=== PATIENT | male | born 1960 | race Caucasian/White ===

== ENCOUNTER 2024-02-16 10:15 | Outpatient (REF) | payer BC, SELFPAY ==
--- NOTE | ~2024-02-16 | XR_ITS ---
EXAMINATION: XR HIP, LEFT CLINICAL INFORMATION: Pain in left hip. COMPARISON: None available. TECHNIQUE: AP view of the pelvis and frog-lateral view of the left hip. FINDINGS: Mild narrowing in the left hip with osteoarthritic changes. Alignment maintained. Minimal degenerative changes on AP view of the right hip. Pubic symphysis is maintained. Bilateral sacroiliac joints are maintained. XR/XR hip LT min 2V IMPRESSION: Mild degenerative changes in the left hip.
== END 2024-02-16 10:16 | disposition home or self-care (01) ==
LOC: HO.HOSX 10:15
PROVIDERS: Visit Provider Orthopaedic Surgery
DX: M25.552 Pain in left hip (principal)
CPT/HCPCS: 73502

== ENCOUNTER 2024-02-16 12:39 | Outpatient (AMB) | payer BC, SELFPAY ==
--- NOTE | 2024-02-16 12:57 | MHC.OFFVIS ---
Intake Visit Reasons: N/P left hip O.A pain , Low back pain Intake Note: Yogesh is a 63 year old male who presents with complaints of progressively worsening pain along the posterior aspect of his left hip radiates into his left leg. Patient states that he was bending over to lift his cover off of his pool when he had acute onset of pain along his low back and the posterior aspect of his left hip. He had difficulty walking after the twisting injury. He has been taking Advil and Robaxin which gave him minimal relief. The patient has difficulty sitting for long periods of time because of his pain. He also reports intermittent weakness in his left leg. 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 Exam Const Other: Well-nourished well-developed very friendly male awake alert and oriented x3 in no acute distress Extrem Other: Left hip examination shows minimal discomfort with range of motion, tenderness along the left side of his lumbar spine, positive straight leg raise test on the left at 70 degrees, no tenderness over his greater trochanteric bursa Results Reviewed Results Reviewed: X-rays of the patient's left hip show mild diffuse joint space narrowing, no acute bony abnormalities Assessment & Plan Assessment & Plan (1) Low Back Pain: Code(s): M54.50 - Low back pain, unspecified Plan Mr. Jackson presents with pain along the posterior aspect of his left hip most likely due to lumbar muscle spasm versus possible disc herniation. I did give the patient is a prescription for a Medrol Dosepak. Activity modifications and stretching exercises were discussed at length with the patient. Will contact me prior to his follow-up appointment in 4-6 weeks should his symptoms worsen in any way. If his symptoms do not improve at that time I will order an MRI of his lumbar spine to further evaluate for possible lumbar spine pathology. Feel free to call me at any time should questions regarding his orthopedic management arise. I spent 21 minutes in reviewing the patient's records and imaging studies, seeing the patient and documenting in the medical record. Orders: Orders XR hip LT min 2V 02/16/24 M25.552 - Pain in left hip Medications: New methylprednisolone (Medrol (Roland)) PO PER PKG DIR 21 ea 0RF Coding Level of Care Code Est Pt Level 3 (21260) Diagnoses Low Back Pain M54.50
== END 2024-02-16 13:17 | disposition home or self-care (01) ==
PROVIDERS: PCP Internal Medicine; Visit Provider Orthopaedic Surgery
DX: M54.50 Low back pain, unspecified (principal)
CPT/HCPCS: 99214

== ENCOUNTER 2024-03-14 13:07 | Outpatient (AMB) | payer BC, SELFPAY ==
--- NOTE | 2024-03-14 13:09 | A.OFFVIS_ITS ---
Intake Visit Reasons: Low back pain radiating to both legs Intake Note: Yogesh is a 63 year old male who presents with complaints of progressively worsening back pain which radiates into the posterior aspect of his left hip as well as radiating down his right leg to his right foot. Patient states that he was bending over to lift his cover off of his pool when he had acute onset of pain. He had difficulty walking after the twisting injury. He has been taking Advil and Robaxin which gave him minimal relief. The patient has difficulty sitting for long periods of time because of his pain. He also reports intermittent weakness in his right leg. The patient states that his back pain is now interfering with his activities of daily living and his ability to sleep well through the night. He has done physical therapy exercises which aggravated his pain. The patient has failed the last 6 weeks of conservative treatment. Allergies No Known Allergies Allergy (Verified 03/14/24 13:10) Medication List - Last Reconciled 03/14/24 by Rachid Moody MD amlodipine 10 mg PO DAILY doxepin 10 mg PO BEDTIME hydrochlorothiazide 12.5 mg PO DAILY metformin 500 mg PO BID methocarbamol 750 mg PO TID methylprednisolone (Medrol (Roland)) PO PER PKG DIR semaglutide (Ozempic) mg subcut testosterone topical valsartan 160 mg PO DAILY PFSH Surgical History (Updated 02/16/24 @ 13:02 by Melania Hernández CMA) Hx of knee surgery Social History (Updated 02/16/24 @ 13:01 by Melania Hernández CMA) Patient Tobacco Use Status: Never used Tobacco Current occupational status: employed 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 Jackson presents with progressively worsening low back pain which radiates into both of his lower extremities as well as right leg weakness possibly due to lumbar stenosis or a disc herniation. Thus, I will send the patient for an MRI of his lumbar spine for further evaluation. I will see him back once the MRI is completed to discuss the findings and treatment options. Will continue with his activity modifications in the meantime. The patient will call me prior to his MRI should his symptoms worsen in any way. Feel free to call me at any time should questions regarding his orthopedic management arise. I spent 21 minutes in reviewing the patient's records and imaging studies, seeing the patient and documenting in the medical record. Orders: Orders MR lumbar spine wo con 03/14/24 M54.50 - Low back pain, unspecified, M79.604 - Pain in right leg, M79.605 - Pain in left leg Coding Level of Care Code Est Pt Level 3 (63008) Diagnoses Low back pain radiating to both legs M54.50; M79.604; M79.605
== END 2024-03-14 13:29 | disposition home or self-care (01) ==
PROVIDERS: PCP Internal Medicine; Visit Provider Orthopaedic Surgery
DX: M54.50 Low back pain, unspecified (principal); M79.604 Pain in right leg; M79.605 Pain in left leg
CPT/HCPCS: 99213

== ENCOUNTER → 2024-03-14 13:07 | Outpatient (BNVA) | payer BC, SELFPAY | PROVIDERS: PCP Internal Medicine; Visit Provider Orthopaedic Surgery ==

== ENCOUNTER 2024-04-11 11:38 | Outpatient (AMB) | payer BC, SELFPAY ==
--- NOTE | 2024-04-11 11:46 | A.OFFVIS_ITS ---
Intake Visit Reasons: OV-MRI Review lower back. Intake Note: Yogesh is a 63 yo male who presents today to review spine MRI results. The patient states that he has pain in his low back which radiates to both of his thighs. He also reports weakness when getting out of a chair. He has tried Tylenol and a Medrol Dosepak which gave him only mild relief. Allergies No Known Allergies Allergy (Verified 04/11/24 11:52) Medication List - Last Reconciled 04/11/24 by Rachid Moody MD amlodipine 10 mg PO DAILY doxepin 10 mg PO BEDTIME hydrochlorothiazide 12.5 mg PO DAILY metformin 500 mg PO BID methocarbamol 750 mg PO TID methylprednisolone (Medrol (Roland)) PO PER PKG DIR semaglutide (Ozempic) mg subcut testosterone topical valsartan 160 mg PO DAILY PFSH Surgical History (Updated 02/16/24 @ 13:02 by Melania Hernández CMA) Hx of knee surgery Social History (Updated 02/16/24 @ 13:01 by Melania Hernández CMA) Patient Tobacco Use Status: Never used Tobacco Current occupational status: employed 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 Exam Const Other: Well-nourished well-developed very friendly male awake alert and oriented x3 in no acute distress Back/Spine/Pelvis Other: Low back examination shows bilateral paraspinal muscle tenderness, positive straight leg raise test on the left at 70 degrees Results Reviewed Results Reviewed: [facility] MRI of the patient's lumbar spine shows moderate to advanced bilateral neural foraminal stenosis greater on the left at level L4-L5 Assessment & Plan Assessment & Plan (1) Low back pain radiating to both legs: Code(s): M54.50 - Low back pain, unspecified; M79.604 - Pain in right leg; M79.605 - Pain in left leg Category: Medical Plan Mr. Jackson presents with low back pain which radiates into both of his legs most likely due to neural foraminal stenosis at level L4-L5. Thus, I will have the patient evaluated in our neurosurgery department here at [facility]. The patient will contact me prior to that appointment should his symptoms worsen in any way. Feel free to call me at any time should questions regarding his orthopedic management arise. I spent 20 minutes in reviewing the patient's records and imaging studies, seeing the patient and documenting in the medical record. Orders: Referrals Neuro Spine Referral M54.50 - Low back pain, unspecified, M79.604 - Pain in right leg, M79.605 - Pain in left leg Coding Level of Care Code Est Pt Level 3 (04779) Diagnoses Low back pain radiating to both legs M54.50; M79.604; M79.605
== END 2024-04-11 12:19 | disposition home or self-care (01) ==
PROVIDERS: PCP Internal Medicine; Visit Provider Orthopaedic Surgery
DX: M54.50 Low back pain, unspecified (principal); M79.604 Pain in right leg; M79.605 Pain in left leg
CPT/HCPCS: 99213

== ENCOUNTER → 2024-04-11 11:38 | Outpatient (BNVA) | payer BC, SELFPAY | PROVIDERS: PCP Internal Medicine; Visit Provider Orthopaedic Surgery ==

== ENCOUNTER 2024-04-30 12:54 | Outpatient (AMB) | payer BC, SELFPAY ==
--- NOTE | 2024-04-30 13:02 | HO.SPINEOV ---
Intake Visit Reasons: LBP Intake Note: Mr. Jackson is here today c/o low back pain that radiates down both legs. Enrobing Machine Corder Required: No Allergies No Known Allergies Allergy (Verified 04/30/24 13:04) Assessment & Plan Assessment & Plan (1) Low back pain radiating to both legs: Code(s): M54.50 - Low back pain, unspecified; M79.604 - Pain in right leg; M79.605 - Pain in left leg Category: Medical Plan Dear Dr Moody, Thank you for referring Mr Jackson to our office today. This is a very nice 63-year-old gentleman who presents to the office today for evaluation for chronic low back issues. Did have an acute event a few months back where he was bending over to get something in his pool and felt an abrupt onset of back pain. That seems to have passed. What he is dealing with more than anything is a stiffness in his feeling of back pain and intermittent leg pain which comes and goes from time to time. He sits for lengthy periods of time throughout the day, sometimes 12-14 hours. When he gets up from a seated position at that point he will feel very stiff. He has been losing weight and is down about 30 or so lb. That might be helping as well. He had an MRI done showing some degenerative disc issues and came today to see us for evaluation. PMH: Hypertension, prediabetes, knee surgery Social hx: He does not smoke, drink use any recreational drugs Medications: Metformin, hydrochlorothiazide, valsartan, paroxetine, testosterone gel, Ozempic amlodipine Allergies: None Physical exam: He is awake alert oriented no acute distress, he is able stand up on his own, ambulate with normal gait Imaging review: Lumbar MRI done at the [facility] shows some mild disc degeneration at the upper lumbar levels. At L4-5 there is some slight crowding the lateral recess but not anything significant. The radiology report suggests that there is advanced neuroforaminal stenosis at the L4-5 level as well but I disagree with this. There is no spondylolisthesis, spondylolysis or fracture. Impression: 63-year-old male presents to the office for evaluation of chronic low back pain issues with intermittent occasional leg pains. These things can come and go, he may experience them 1 to 2 times a month. Overall I think his disc quality health is excellent. He does not have any significant central or foraminal stenosis. I know the radiology report suggests that he has advanced foraminal stenosis at L4-5 but I disagree with this. I think what he is dealing with is a combination of long-term sedentary lifestyle, obesity and relative inactivity causing them to have stiffness and pain in his back when he starts to get active and move around. I think this would be easily be treatable with lifestyle modifications, and some weight loss. We discussed all these things at length during his office visit. Certainly nothing on his MRI looks surgical. I would be happy to see him back if something changes. Thank you for allowing us to care for your patient. The total time spent with this visit with this patient was 45 minutes reviewing history, physical exam, lumbar imaging review, and implementation of treatment plan or further diagnostic testing Iain Adhikari MD,PhD [facility] Coding Level of Care Code New Pt Level 4 (39414) Diagnoses Low back pain radiating to both legs M54.50; M79.604; M79.605
== END 2024-04-30 14:22 | disposition home or self-care (01) ==
PROVIDERS: PCP Internal Medicine; Referring Provider Orthopaedic Surgery; Visit Provider Physician Assistant
DX: M54.50 Low back pain, unspecified (principal); M79.604 Pain in right leg; M79.605 Pain in left leg
CPT/HCPCS: 99204

== ENCOUNTER → 2024-04-30 12:54 | Outpatient (BNVA) | payer BC, SELFPAY | PROVIDERS: PCP Internal Medicine; Visit Provider Physician Assistant ==

== ENCOUNTER 2024-05-23 13:05 | Outpatient (AMB) | payer BC, SELFPAY ==
--- NOTE | 2024-05-23 13:06 | A.OFFVIS_ITS ---
Vital Signs 05/23/24 13:12 Height 5 ft 11 in Weight 292 lb BMI 40.7 Intake Visit Reasons: OV-New prob Right shldr pain Intake Note: Mr. Jackson presents with complaints of progressively worsening right shoulder pain and weakness. The patient describes his pain as sharp and severe in nature. Most of the pain is along the lateral aspect of his right shoulder. Does report weakness when lifting his right hand above shoulder height. His right shoulder pain and weakness have gotten worse over the last year in spite of continued non operative treatments. He has done physical therapy exercises which aggravated his pain. He has failed the last 6 weeks of conservative treatment. He has tried Tylenol, anti-inflammatory medicines and muscle relaxants which gave him minimal relief. Allergies No Known Allergies Allergy (Verified 05/23/24 13:07) Medication List - Last Reconciled 05/24/24 by Rachid Moody MD amlodipine 10 mg PO DAILY doxepin 10 mg PO BEDTIME hydrochlorothiazide 12.5 mg PO DAILY metformin 500 mg PO BID methocarbamol 750 mg PO TID methylprednisolone (Medrol (Roland)) PO PER PKG DIR semaglutide (Ozempic) mg subcut testosterone topical valsartan 160 mg PO DAILY PFSH Surgical History (Updated 02/16/24 @ 13:02 by Melania Hernández CMA) Hx of knee surgery Social History (Updated 02/16/24 @ 13:01 by Melania Hernández CMA) Patient Tobacco Use Status: Never used Tobacco Current occupational status: employed 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 Exam Vital Signs: BMI result Body Mass Index 40.7 Const Other: Well-nourished well-developed very friendly male awake alert and oriented x3 in no acute distress Extrem Other: Bilateral upper extremity examination shows good capillary refill, no skin lesions noted, normal sensation light touch Right shoulder examination shows slightly decreased range of motion when compared to his left shoulder, 4+ out of 5 strength with supraspinatus testing, positive impingement signs, tenderness over his acromioclavicular joint, no instability Office Procedures Joint Injection/Aspiration Joint Injection/Aspiration Primary Site: right shoulder Prep: site was prepped using aseptic technique Injected: 40 mg of, DepoMedrol and 1% plain lidocaine Procedure: The patient tolerated the procedure well Coding 87594 - Large joint Procedure code (CPT) selection complete Assessment & Plan Assessment & Plan (1) Right shoulder pain: Code(s): M25.511 - Pain in right shoulder Category: Medical Plan Mr. Jackson presents with right shoulder pain and weakness due to impingement syndrome and possible rotator cuff tearing. I had a lengthy discussion with the patient regarding the treatment options. The risks and benefits of a right shoulder cortisone injection were discussed at length with the patient. The patient wished to proceed. He tolerated the injection well. I will also send the patient for an MRI of his right shoulder to further evaluate the status of his rotator cuff tendons. If he does have a full-thickness tear I will recommend surgical repair to optimize his future functional level. I will see him back once the MRI is completed to discuss the findings and treatment options. Feel free to call me at any time should questions regarding his orthopedic management arise. I spent 21 minutes in reviewing the patient's records and imaging studies, seeing the patient and documenting in the medical record. Orders: Orders MR shoulder RT wo con Today M25.511 - Pain in right shoulder AMB Joint Injection/Aspiration 05/23/24 M25.511 - Pain in right shoulder Coding Level of Care Code Est Pt Level 3 (15524) Complex EM visit Add On G2211 Diagnoses Right shoulder pain M25.511 CPT Codes Coding - 90563 Large joint: 68343 - Large joint ([id number])
[2024-05-23 13:12] VITALS: BMI 40.7
== END 2024-05-23 13:31 | disposition home or self-care (01) ==
PROVIDERS: PCP Internal Medicine; Visit Provider Orthopaedic Surgery
DX: M75.41 Impingement syndrome of right shoulder (principal)
CPT/HCPCS: 20610; 99213

== ENCOUNTER → 2024-05-23 13:05 | Outpatient (BNVA) | payer BC, SELFPAY | PROVIDERS: PCP Internal Medicine; Visit Provider Orthopaedic Surgery | DX: M75.41 Impingement syndrome of right shoulder (principal) | CPT/HCPCS: 20610; J1010 ==

== ENCOUNTER 2024-06-07 14:26 | Outpatient (AMB) | payer BC, SELFPAY ==
--- NOTE | 2024-06-07 14:27 | A.OFFVIS_ITS ---
Vital Signs 06/07/24 14:28 Height 5 ft 11 in Weight 292 lb BMI 40.7 Intake Visit Reasons: OV-MRI Right shoulder review Intake Note: Mr. Jackson presents with complaints of progressively worsening right shoulder pain. The patient describes his pain as sharp and severe in nature. Most of the pain is along the lateral aspect of his right shoulder. The patient states that his pain has gotten worse over the last year in spite of continued non operative treatments. He has done physical therapy exercises which aggravated his pain. He has had injections in the past which gave him minimal relief. Has also taken Tylenol, anti-inflammatory medicines and muscle relaxants which gave him minimal relief. The patient has failed the last 6 weeks of conservative treatment. Yogesh is a 63 year old male that presents today for a MRI review. 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 Exam Vital Signs: BMI result Body Mass Index 40.7 Const Other: Well-nourished well-developed very friendly male awake alert and oriented x3 in no acute distress Extrem Other: Bilateral upper extremity examination shows good capillary refill, no skin lesions noted, normal sensation light touch Right shoulder examination shows slightly decreased range of motion when compared to his left shoulder, 4+ out of 5 strength with supraspinatus testing, positive impingement signs, tenderness over his acromioclavicular joint, no instability Results Reviewed Results Reviewed: MRI of the patient's right shoulder show severe acromioclavicular joint narrowing, a type 3 acromion, signal change within the supraspinatus tendon most likely due to rotator cuff tendinosis versus partial-thickness tearing Assessment & Plan Assessment & Plan (1) Impingement of right shoulder: Code(s): M25.811 - Other specified joint disorders, right shoulder Category: Medical Plan Mr. Jackson presents with progressively worsening right shoulder pain due to impingement syndrome and acromioclavicular joint arthritis. I had a lengthy discussion with the patient regarding the treatment options. At this point he has failed continued non operative treatments. The risks and benefits of right shoulder surgery were discussed at length with the patient. The patient wishes to proceed with surgery later this year. He will contact my office to pick a surgery date. Surgery will most likely involve right shoulder diagnostic arthro scopy with arthroscopic distal clavicle excision and acromioplasty. The patient will continue with his range of motion exercises in the meantime to prevent stiffness. Feel free to call me at any time should questions regarding his orthopedic management arise. I spent 22 minutes in reviewing the patient's records and imaging studies, seeing the patient and documenting in the medical record. Coding Level of Care Code Est Pt Level 3 (99949) Complex EM visit Add On G2211 Diagnoses Impingement of right shoulder M25.811
[2024-06-07 14:28] VITALS: BMI 40.7
== END 2024-06-07 14:54 | disposition home or self-care (01) ==
PROVIDERS: PCP Internal Medicine; Visit Provider Orthopaedic Surgery
DX: M25.811 Other specified joint disorders, right shoulder (principal)
CPT/HCPCS: 99214

== ENCOUNTER → 2024-06-07 14:26 | Outpatient (BNVA) | payer BC, SELFPAY | PROVIDERS: PCP Internal Medicine; Visit Provider Orthopaedic Surgery ==

== ENCOUNTER 2024-09-14 05:50 | Day surgery (SDC) | payer BC, SELFPAY ==
[2024-08-29 12:10] VITALS: BMI 39.7
[2024-09-14] VITALS (12 sets, daily range): BP systolic 100–150; BP diastolic 53–86; PULSE 58–67; RESP 12–17; TEMP 36.1–36.4; O2SAT 91–98; BMI 40.3
[2024-09-14 06:32] LABS: Glucose, Whole Blood 140 mg/dL (60-115)
[2024-09-14 06:40] LABS: Anion Gap 12 (12-20); Blood Urea Nitrogen 20 mg/dL (9-16); Calcium 9.3 mg/dL (8.4-10.2); Carbon Dioxide 28 mmol/L (22-29); Chloride 103 mmol/L (96-108); Creatinine Clr Calc Pharmacy 90.3; Estimated Glomerular Filt Rate > 60; Glucose Fasting 124 mg/dL (60-99); Potassium 3.2 mmol/L (3.3-5.1); Sodium 140 mmol/L (135-145)
[2024-09-14] MEDS: Lactated Ringers 1,000 ML 100 ML IVCONT (06:57)
[2024-09-14 07:07] LABS: Hematocrit 45.7 % (42.0-52.0); Hemoglobin 16.1 g/dl (14.0-18.0); Mean Corpuscular HGB Conc 35.2 g/dl (31.0-36.0); Mean Corpuscular Hemoglobin 29.3 pg (27.0-33.0); Mean Corpuscular Volume 83.1 fL (80.0-98.0); Mean Platelet Volume 11.2 fL (9.4-12.4); Platelet Count 123 X10*3/uL (160-400); Red Cell Distribution Width 12.2 % (11.0-16.0); White Blood Count 7.2 X10*3/uL (4.8-10.8)
--- NOTE | 2024-09-14 07:25 | HO.ANESPROP2 ---
Documented by User: Celia Suarez NP 08/31/24 12:16 HPI - Anesthesia Eval Consult details Narrative: 64yo M for Right Shoulder Arthroscopy distal clavicle excision,acromioplasty, 09/14/24 Follows PCP for moderate aortic stenosis with yearly echo. Stable at 08/28/24 office visit. Anesthesia Pre-Procedure Meds Is the patient on any of the following meds?: GLP1/DPP4 PMFSH Active Problems Active Problems: All Active Problems Impingement of right shoulder (Acute) Right shoulder pain (Acute) Low back pain radiating to both legs (Acute) Left hip pain (Acute) Past Medical History Medical History (Updated 09/14/24 @ 06:36 by Erica Hoover RN) Pre-diabetes Anxiety Obesity Diabetes HTN (hypertension) Aortic stenosis Skin cancer COVID-19 Murmur Surgical History Surgical History (Updated 09/14/24 @ 06:24 by Erica Hoover RN) History of dental surgery H/O colonoscopy History of testicular surgery Hx of knee surgery Social History Social History Are you a primary child caregiver private home to a significant other at home: No Do you presently have visiting nurse or other home services: No Patient Tobacco Use Status: Never used Tobacco Use of substances other than those prescribed or required for medical reasons: No Have you been hit, kicked, punched, or otherwise hurt by someone within the past year? 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 Allergies Allergy/AdvReac Type Severity Reaction Status Date / Time No Known Allergies Allergy Verified 09/14/24 06:14 Home Medications ?Medication ?Instructions ?Recorded ?Confirmed ?Last Taken ?Type amlodipine 10 mg tablet 10 mg PO QNOON 02/16/24 09/14/24 09/13/24 History hydrochlorothiazide 12.5 mg tablet 12.5 mg PO DAILY 02/16/24 09/14/24 09/13/24 History metformin 500 mg tablet 500 mg PO QPM 02/16/24 09/14/2409/12/24 History semaglutide 0.25 mg or 0.5 mg (2 0.25 mg subcut QWEEK 02/16/24 09/14/24 09/02/24 History mg/3 mL) subcutaneous pen injector (Ozempic) testosterone 1 pump topical DAILY 02/16/24 09/14/24 Unknown History valsartan 160 mg tablet 160 mg PO DAILY 02/16/24 09/14/24 09/13/24 History lorazepam 0.5 mg tablet 0.5 mg PO DAILY PRN Insomnia 08/29/24 09/14/24 Unknown History paroxetine HCl 20 mg tablet 20 mg PO DAILY 08/29/24 09/14/24 Unknown History Exam Height,Weight and Vital Signs: Height 5 ft 11 in Weight 129.274 kg Narrative Narrative: EKG [id number] SR @ 69 1st deg AV block ECHO 06/2024 LV size nml. LV wall thickness is mildly increased. LV poorly visualized. Echocontrast images are off axis. Nml LV sys function. EF 55-60%. No obvious WMA on limited views. Nml diastolic function. Aortic valve moderately calcified, more prominant of noncoronary cusp. Moderate . Mean gradient 25mmHg. RANI 1.38cm2. No aortic regurg RV size and function appears grossly nml. No significant pericardial effusion. Nuc Stress 07/2024 Negative for ischemia Assessment and Plan Assessment Anesthesia Assessment: Chart Reviewed Documented by User: Tiki Pascal DO 09/14/24 07:53 HPI - Anesthesia Eval Anesthesia Pre-Procedure Meds Is the patient on any of the following meds?: GLP1/DPP4 PMFSH Past Medical History Medical History (Updated 09/14/24 @ 06:36 by Erica Hoover RN) Pre-diabetes Anxiety Obesity Diabetes HTN (hypertension) Aortic stenosis Skin cancer COVID-19 Murmur Family History Family history of problems with anesthesia: No Surgical History Surgical History (Updated 09/14/24 @ 06:24 by Erica Hoover RN) History of dental surgery H/O colonoscopy History of testicular surgery Hx of knee surgery History of Problems with Anesthesia: No Social History Social History Are you a primary child caregiver private home to a significant other at home: No Do you presently have visiting nurse or other home services: No Patient Tobacco Use Status: Never used Tobacco Use of substances other than those prescribed or required for medical reasons: No Have you been hit, kicked, punched, or otherwise hurt by someone within the past year? 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 Allergies Allergy/AdvReac Type Severity Reaction Status Date / Time No Known Allergies Allergy Verified 09/14/24 06:14 Home Medications ?Medication ?Instructions ?Recorded ?Confirmed ?Last Taken ?Type amlodipine 10 mg tablet 10 mg PO QNOON 02/16/24 09/14/24 09/13/24 History hydrochlorothiazide 12.5 mg tablet 12.5 mg PO DAILY 02/16/24 09/14/24 09/13/24 History metformin 500 mg tablet 500 mg PO QPM 02/16/24 09/14/24 09/12/24 History semaglutide 0.25 mg or 0.5 mg (2 0.25 mg subcut QWEEK 02/16/24 09/14/24 09/02/24 History mg/3 mL) subcutaneous pen injector (Ozempic) testosterone 1 pump topical DAILY 02/16/24 09/14/24 Unknown History valsartan 160 mg tablet 160 mg PO DAILY 02/16/24 09/14/24 09/13/24 History lorazepam 0.5 mg tablet 0.5 mg PO DAILY PRN Insomnia 08/29/24 09/14/24 Unknown History paroxetine HCl 20 mg tablet 20 mg PO DAILY 08/29/24 09/14/24 Unknown History Exam Exam Date and Time: 09/14/24 0725 Height,Weight and Vital Signs: Height 5 ft 11 in Weight 129.274 kg Vital Signs Temperature 97.6 F 09/14/24 06:24 Pulse Rate 67 09/14/24 06:24 Respiratory Rate 16 09/14/24 06:24 Blood Pressure 150/86 H 09/14/24 06:24 Pulse Oximetry 97 09/14/24 06:24 Oxygen Delivery Method Room Air 09/14/24 06:24 Temperature 97.6 F 09/14/24 06:24 Pulse Rate 67 09/14/24 06:24 Respiratory Rate 16 09/14/24 06:24 Blood Pressure 150/86 H 09/14/24 06:24 Pulse Oximetry 97 09/14/24 06:24 Oxygen Delivery Method Room Air 09/14/24 06:24 Airway Mallampati Class: II TM Dist: <=3cm Neck ROM: Full Denture: Upper Heart: S1S2 Lungs: CTAB Assessment and Plan Assessment Anesthesia Assessment: Anesthesia Plan Discussed and Chart Reviewed Final Anesthetic Review Family History of Problems with Anesthesia: No History of Problems with Anesthesia: No NPO: Yes ASA Class: III Final Preanesthetic Review: No Changes in Pt Med Stat, Meds/Allgs Chart Reviewed, Consent Obtained/Reviewed and Anes Risks/Benef Reviewed Patient Risk: Intermediate Procedure Risk: Intermediate Anesthetic Plan Anesthetic Plan: GA, Regional Block (right brachial plexus block) and Agree w/ Assess. and Plan
--- NOTE | 2024-09-14 09:29 | P.BOP_ITS ---
Brief Operative Note Date of Service: 09/14/24 Pre-op diagnosis: Right shoulder impingement syndrome, right shoulder acromioclavicular joint arthritis, right shoulder adhesive capsulitis Post-op diagnosis: same Procedure: Right shoulder diagnostic arthroscopy with right shoulder arthroscopic distal clavicle excision, right shoulder arthroscopic acromioplasty, right shoulder arthroscopic anterior capsular release, right shoulder manipulation under anesthesia Implants: none Surgeon: Rachid Moody MD Anesthesia: GETA and regional Was an Field [employer] Farmworker used for this Procedure?: No Estimated blood loss (mL): 10 Pathology: none sent Condition: stable Disposition: PACU
--- NOTE | 2024-09-14 09:30 | P.OP_ITS ---
Operative Note Operative Note Date of Service: 09/14/24 Narrative: After the patient was identified as Yogesh Lizama and his right shoulder was initialed by myself the patient was brought to the holding area where a right shoulder interscalene regional block was performed by the anesthesiologist in routine fashion. The patient was then brought to the operating room where general anesthesia was induced by the anesthesiologist in routine fashion. The patient was given 3 g of IV Ancef preoperatively for infection prophylaxis. Examination under anesthesia of the patient's right shoulder showed decreased passive range of motion when compared to the left shoulder. The patient's right shoulder had passive forward flexion to 120 degrees compared to 170 degrees, external rotation to 20 degrees compared to 60 degrees, and internal rotation to 40 degrees compared to 50 degrees. The patient was gently positioned in the beach chair position with all bony prominences well padded. The patient's right shoulder region and upper extremity were prepped and draped in sterile fashion. A formal time-out was completed. A #11 scalpel blade was used to make a posterior portal 2 cm inferior and 1 cm medial to the posterolateral corner of the acromion. Blunt trocar technique was used to enter the glenohumeral joint in routine fashion. An anterior portal was made just lateral to the coracoid process after proper positioning was confirmed using a spinal needle. Diagnostic arthroscopy showed minimal degenerative changes of the glenoid and humeral head articular surfaces. There was no evidence of rotator cuff tearing. There was no evidence of injury to the biceps tendon or its insertion onto the glenoid. There was inflammation of the anterior joint capsule consistent with adhesive capsulitis. The ArthroCare Wand was then used to perform an anterior capsular release between the inferior border of the biceps tendon and the superior border of the subscapularis tendon. The arthroscope was then placed from the posterior portal into the subacromial space. A lateral portal was made 2 fingerbreadths lateral to the anterior lateral corner of the acromion. The ArthroCare Wand was used to ablate soft tissues along the undersurface of the acromion as well as to excise the coracoacromial ligament. There was a sharp spur along the undersurface of the acromion which was removed using the hooded bur. The arthroscope was then placed into the lateral portal and the acromiop lasty was completed with the bur in the posterior portal using the posterior aspect of the acromion as a cutting block. The ArthroCare Wand was then brought in through the anterior portal and was used to ablate soft tissues along the acromioclavicular joint and distal clavicle. The posterior and superior ligamentous structures were left intact. A distal clavicle excision of 8 mm was performed using the fluted bur. Any remaining bursal tissue was removed using the arthroscopic shaver. The subacromial space was irrigated and then drained. All arthroscopic instruments were removed. A gentle manipulation under anesthesia was then performed. Full passive range of motion was easily attained. The 3 portals were closed with 3-0 nylon interrupted suture. The subacromial space was injected with Marcaine. Dry sterile dressing was placed over all incisions. The patient's right upper extremity was placed into a sling. The patient was awoken and extubated in the operating room. The patient was transferred to the recovery room in stable condition.
[2024-09-14] MEDS: cefTRIAXone sodium 1 GM VIAL IVPUSH (10:06)
== END 2024-09-14 12:02 | disposition home or self-care (01) ==
PROVIDERS: Nurse Practitioner; PCP Internal Medicine; Visit Provider Orthopaedic Surgery
PROC: (CPT 29805; principal; 2024-09-14 07:30)
DX: M75.41 Impingement syndrome of right shoulder (principal); M75.01 Adhesive capsulitis of right shoulder; M19.011 Primary osteoarthritis, right shoulder; I10 Essential (primary) hypertension; I35.0 Nonrheumatic aortic (valve) stenosis; E11.9 Type 2 diabetes mellitus without complications; Z79.84 Long term (current) use of oral hypoglycemic drugs; Z79.85 Long-term (current) use of injectable non-insulin antidiabetic drugs; Z79.899 Other long term (current) drug therapy; Z98.890 Other specified postprocedural states
CPT/HCPCS: 29824; 29825; 29826; 36415; 80048; 82947; 85027; J0131; J0171; J0690; J0696; J1100; J2003; J2250; J2405; J2704; J2795; J3010

== ENCOUNTER → 2024-09-14 05:50 | Outpatient (BNV) | payer BC, SELFPAY | PROVIDERS: PCP Internal Medicine; Visit Provider Orthopaedic Surgery | DX: M75.41 Impingement syndrome of right shoulder (principal); M19.011 Primary osteoarthritis, right shoulder; M75.01 Adhesive capsulitis of right shoulder | CPT/HCPCS: 29824; 29826 ==

== ENCOUNTER 2024-09-27 13:39 | Outpatient (AMB) | payer BC, SELFPAY ==
--- NOTE | 2024-09-27 13:47 | A.OFFVIS_ITS ---
Vital Signs 09/27/24 13:49 Height 5 ft 11 in Weight 289 lb BMI 40.3 Intake Visit Reasons: PO RT shoulder 09/14/24 Intake Note: Yogesh is a 64 year old male who presents today for his first post operative visit after undergoing a right shoulder arthroscopy on 09/14/24. He reports mild to moderate discomfort in his right shoulder. He has no longer taking oxycodone for his discomfort. He denies any fevers or chills. He continues with his home stretching program. Allergies No Known Allergies Allergy (Verified 09/27/24 13:50) Medication List - Last Reconciled 09/27/24 by Rachid Moody MD amlodipine 10 mg PO QNOON hydrochlorothiazide 12.5 mg PO DAILY lorazepam 0.5 mg PO DAILY PRN metformin 500 mg PO QPM oxycodone 10 mg (2 x 5 mg) PO Q4H PRN paroxetine HCl 20 mg PO DAILY semaglutide (Ozempic) 0.25 mg subcut QWEEK testosterone 1 pump topical DAILY valsartan 160 mg PO DAILY PFSH Medical History (Updated 09/14/24 @ 06:36 by Erica Hoover, RADHA) Pre-diabetes Anxiety Obesity Diabetes HTN (hypertension) Aortic stenosis Skin cancer COVID-19 Murmur Surgical History (Updated 09/14/24 @ 06:24 by Erica Hoover RN) History of dental surgery H/O colonoscopy History of testicular surgery Hx of knee surgery Social History Are you a primary care team coordinator scheduler to a significant other at home: No Do you presently have visiting nurse or other home services: No Patient Tobacco Use Status: Never used Tobacco Current occupational status: employed 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 Jackson he is doing very well after undergoing right shoulder arthroscopic surgery on 09/14/2024. His sutures were removed and Steri-Strips placed over his incisions. He will continue with his home stretching program. The do's and don'ts of lifting were discussed at length with the patient. He will contact me prior to his follow-up appointment in 6 weeks should any questions or concerns arise. Feel free to call me at any time should questions regarding his orthopedic management arise. Coding Level of Care Code Global (34938) Diagnoses Right shoulder pain M25.511
[2024-09-27 13:49] VITALS: BMI 40.3
== END 2024-09-27 13:57 | disposition home or self-care (01) ==
PROVIDERS: PCP Internal Medicine; Visit Provider Orthopaedic Surgery
DX: M25.511 Pain in right shoulder (principal)
CPT/HCPCS: 99024

== ENCOUNTER → 2024-10-25 14:29 | Outpatient (BNVA) | payer BC, SELFPAY | PROVIDERS: PCP Internal Medicine; Visit Provider Orthopaedic Surgery ==

== ENCOUNTER 2025-01-03 14:25 | Outpatient (AMB) | payer BC, SELFPAY ==
--- NOTE | 2025-01-03 14:27 | A.OFFVIS_ITS ---
Vital Signs 01/03/25 14:32 Height 5 ft 11 in Weight 289 lb BMI 40.3 Intake Visit Reasons: OV- RT shoulder 09/14/24 Intake Note: Yogesh is a 64 year old male who presents for routine follow-up after undergoing right shoulder arthroscopic surgery on September 14 1024. He reports continued mild to moderate discomfort along the lateral aspect of his right shoulder. He notices the pain most when he is trying to sleep and lays on his right side or when he is at work using his computer with his arm in certain positions. He has been going to formal physical therapy at [facility] in [place]. Allergies No Known Allergies Allergy (Verified 01/03/25 14:32) Medication List - Last Reconciled 01/03/25 by Rachid Moody MD amlodipine 10 mg PO QNOON hydrochlorothiazide 12.5 mg PO DAILY lorazepam 0.5 mg PO DAILY PRN metformin 500 mg PO QPM oxycodone 10 mg (2 x 5 mg) PO Q4H PRN paroxetine HCl 20 mg PO DAILY semaglutide (Ozempic) 0.25 mg subcut QWEEK testosterone 1 pump topical DAILY valsartan 160 mg PO DAILY PFSH Medical History (Updated 09/14/24 @ 06:36 by Erica Hoover RN) Pre-diabetes Anxiety Obesity Diabetes HTN (hypertension) Aortic stenosis Skin cancer COVID-19 Murmur Surgical History (Updated 09/14/24 @ 06:24 by Erica Hoover RN) History of dental surgery H/O colonoscopy History of testicular surgery Hx of knee surgery Social History Are you a primary acute care nurse practitioner to a significant other at home: No Do you presently have visiting nurse or other home services: No Patient Tobacco Use Status: Never used Tobacco Current occupational status: employed 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 Jackson presents for routine follow-up after undergoing right shoulder arthroscopic surgery on 09/14/2024. The patient will continue going to formal physical therapy for now. He will gradually transition to a home exercise program. I discussed with the patient the fact that his symptoms should continue to improve over the next few months. He will contact me prior to his follow-up appointment in 2 months should any questions or concerns arise. Feel free to call me at any time should questions regarding his orthopedic management arise. I spent 20 minutes in reviewing the patient's records and imaging studies, seeing the patient and documenting in the medical record. Coding Level of Care Code Est Pt Level 3 (70150) Complex EM visit Add On G2211 Diagnoses Right shoulder pain M25.511
[2025-01-03 14:32] VITALS: BMI 40.3
--- OUTSIDE RECORDS SUMMARY | 2025-01-03 17:27 | XMS_ITS | Clinical Summary ---
Author Organization [facility] Address [address] [place] [address] Phone Care Team Providers Care Nursery Teacher Name Role Phone Deandre Jones MD Primary Care Provider [phone] Allergies No known active allergies Medications testosterone (AndroGeL) 20.25 mg/1.25 gram (1.62 %) gel in metered-dose pump Place 20.25 mg on the skin 1 (one) time each day. Max Daily Amount: 20.25 mg Active semaglutide (Ozempic) 1 mg/dose (4 mg/3 mL) injection pen Inject 1 mg under the skin every 7 (seven) days. Active PARoxetine (PAXIL) 20 mg tablet Take 1 tablet (20 mg total) by mouth 1 (one) time each day in the morning. Active valsartan (DIOVAN) 160 mg tablet Take 1 tablet (160 mg total) by mouth 1 (one) time each day. Active metFORMIN (GLUMETZA) 500 mg 24 hr tablet Take 1 tablet (500 mg total) by mouth 1 (one) time each day with dinner. Do not crush, chew, or split. Active hydroCHLOROthia zide (MICROZIDE) 12.5 mg capsule Take 1 capsule (12.5 mg total) by mouth 1 (one) time each day. Active amLODIPine (NORVASC) 10 mg tablet Take 1 tablet (10 mg total) by mouth 1 (one) time each day. Active LORazepam (ATIVAN) 0.5 mg tablet Take 1 tablet (0.5 mg total) by mouth if needed for anxiety (For sleep). Active Active Problems Problem Noted Date Diagnosed Date Aortic stenosis, moderate 10/09/2024 Assessment & Plan (10/10/2024 4:11 PM EST): Patient with moderate aortic stenosis. I discussed with him the signs and symptoms of progressive aortic stenosis mainly shortness of breath chest discomfort or lightheadedness with exercise. We did 9 minutes on the stress test with no following blood pressure and no symptoms which is a good finding. He asked about exercise I told him to keep his heart rate less than 120 and if he develops any lightheadedness or dizziness he needs to slow down or stop the exercise that he is participating in. Recommended to repeat the echo echocardiogram in 1 year which has been scheduled and we will see him back in 1 year unless he develops any of the symptoms. Orders: Ambulatory referral to Cardiology ECG 12 lead Transthoracic echocardiogram (TTE) complete with PRN contrast, bubble, strain, and 3D order panel; Future Essential (primary) hypertension 10/09/2024 Encounters Date Type Department Care Team Description 12/12/2024 Telephone [facility] [address] [place] [address] Deandre Jones MD Medical Records 10/10/2024 2:30 PM EST Office Visit [facility] [address] [place] [address] Vasquez Watts MD Aortic stenosis, moderate from Last 3 Months Surgical History Surgery Date Site/Laterality Comments SHOULDER SURGERY PROCEDURE:SHOULDER SURGERY Medical History Medical History Date Comments Hypertension DX:Hypertension T2DM (type 2 diabetes mellitus) ([facility] V24, [facility] S/[facility] V28) Morbid obesity ([facility] V24, [facility] V28) Family History Medical History Relation Name Comments Hypertension Father Relation Name Status Comments Father Social History Tobacco Use Types Packs/Day Years Used Date Smoking Tobacco: Former Cigarettes Q uit: 09/19/1997 Smokeless Tobacco: Never Alcohol Use Standard Drinks/Week Comments Not Currently 0 (1 standard drink = 0.6 oz pur e alcohol) Sex and Gender Information Value Date Recorded Sex Assigned at Not on file Legal Sex Male 4:40 PM EST Gender Identity Not on file Sexual Orientation Not on file Obstetrics History Last Filed Vital Signs Vital Sign Reading Time Taken Comments Blood Pressure 124/70 10/10/2024 3:43 PM EST Pulse 84 10/10/2024 2:55 PM EST Temperature - - Respiratory Rate - - Oxygen Saturation 95% 10/10/2024 2:55 PM EST Inhaled Oxygen Concentration - - Weight 127 kg (280 lb) 10/10/2024 2:55 PM EST Height 180.3 cm (5' 11 ) 10/10/2024 2:55 PM EST Body Mass Index 39.05 10/10/2024 2:55 PM EST Plan of Treatment Upcoming Encounters Date Type Department Care Team (Late st Contact Info) Description 10/10/2025 2:30 PM EST Ancillary Procedure [facility] [address] [facility] [address] [place] [address] Health Maintenance Due Date Last Done Comments Pneumococcal Vaccine: 50+ Years (1 of 1 - PCV) 2010 Zoster Vaccines (1 of 2) 2010 Cholesterol Screening (Lipid Panel) 08/18/2022 Colorectal Cancer Screening: Colonoscopy 08/18/2022 Depression Screening 08/18/2022 HIV Screening 08/18/2022 Hepatitis C Screening 08/18/2022 Social Influencers of Health Screening 08/18/2022 COVID-19 Vaccine (4 - 2023-2 5 season) 2024 08/07/2021, 11/13/2020, 10/23/2020 Hypertension/CHF/CAD Annual BMP Blood Test 10/10/2024 Influenza Vaccine (Season Ended) 2025 08/04/2023 DTaP,Tdap,and Td Vaccines (2 - Td or Tdap) 11/27/2032 11/27/2022 RSV Immunization Adult Patients (1 - 1-dose 75+ series) 2035 HIB Vaccines Aged Out No longer eligi ble based on patient's age to complete this topic HPV Vaccines Aged Out No longer eligi ble based on patient's age to complete this topic Hepatitis A Vaccines Aged Out No long er eligible based on patient's age to complete this topic Hepatitis B Vaccines Aged Out No long er eligible based on patient's age to complete this topic IPV Vaccines Aged Out No longer eligi ble based on patient's age to complete this topic MMR Vaccines Aged Out No longer eligi ble based on patient's age to complete this topic Meningococcal ACWY Vaccine Aged Out N o longer eligible based on patient's age to complete this topic Meningococcal B Vaccine Aged Out No l onger eligible based on patient's age to complete this topic Pneumococcal Vaccine: Pediatrics (0 to 5 Years) and At-Risk Patients (6 to 64 Years) Aged Out No longer eligible b ased on patient's age to complete this topic RSV Immunization Patients Under 20 months Aged Out No longer eligible b ased on patient's age to complete this topic Varicella Vaccines Aged Out No longer eligible based on patient's age to complete this topic Procedures Procedure Name Priority Date/Time Associated Diagnosis Comments ECG 12-LEAD Routine 10/10/2024 3:07 PM EST Aortic stenosis, moderate from Last 3 Months Results * ECG 12 lead (10/10/2024 3:07 PM EST) Ventricular Rate ECG 81 BPM GEMUSE Atrial Rate 81 BPM GEMUSE P-R Interval 202 ms GEMUSE QRS Duration 94 ms GEMUSE Q-T Interval 370 ms GEMUSE QTc 429 ms GEMUSE P Wave [place] -8 degrees GEMUSE R [place] 11 degrees GEMUSE T [place] -36 degrees GEMUSE ECG Interpretation Normal sinus rhythm Nonspecific ST and T wave abnormality Abnormal ECG When compared with ECG of 06-AUG-2016 09:09, T wave inversion more evident in Inferior leads Confirmed by Max WATTS, VASQUEZ ([id number]) on 10/10/2024 4:06:32 PM GEMUSE 10/10/2024 3:07 PM EST 10/10/2024 4:06 PM EST us Vasquez Watts MD ECG ORDERABLES Final Result GEMUSE from Last 3 Months [facility] Subscriber Plan / Payer (Ef fective 2022-Present) Name:Yogesh Jackson Member ID:[id number] Relation to Subscriber:Self Name:Yogesh Jackson Subscriber ID:[id number] Payer ID:[id number] Type:Not on file Address: [address] [address] Care Teams Nursery Teacher Relationship Specialty Start Date End Date Deandre Jones MD [address] [place] [id number] PCP - General 11/26/22
--- OUTSIDE RECORDS SUMMARY | 2025-01-03 17:27 | XMS_ITS | Clinical Summary ---
Author Organization [facility] Address [address] [place] [address] Care Team Providers Care Vehicle Mechanic Name Role Phone Deandre Jones MD Primary Care Provider Unavail able Allergies Active Allergy Reactions Criticality Noted Date Comments Aspirin 08/05/2023 Medications Medication Sig Dispensed Refills Start Date End Date Status amLODIPine (NORVASC) tablet 5 mg TAKE 1 TABLET BY MOUTH ONCE DAILY 1 05/09/2017 Active gabapentin (NEURONTIN) 300 MG capsule TAKE 1 CAPSULE DAILY 2 03/08/2017 Active irbesartan (AVAPRO) 150 MG tablet Take 150 mg by mouth daily. as directed 2 04/27/2018 Active montelukast (SINGULAIR) 10 MG tablet 0 03/23/2018 Active PARoxetine (PAXIL) 20 MG tablet 0 04/21/2018 Active predniSONE (DELTASONE) tablet 20 mg TAKE 1 TABLET BY MOUTH DAILY FOR 5 DAYS 0 02/06/2018 Active Tobramycin (TOBREX) 0.3 % SOLN INSTILL 1 DROP INTO BOTH EYES EVERY 4 HOURS FOR 7 DAYS 0 02/06/2018 Active predniSONE (DELTASONE) tablet 20 mg 3 tabs for 3 days then 2 tabs for 3 days then 1 tab for 3 days 18 tablet 0 05/16/2018 Active celecoxib (CeleBREX) 200 MG capsule TAKE 1 CAPSULE BY MOUTH EVERY DAY 30 capsule 3 12/13/2018 Active Active Problems Problem Noted Date Diagnosed Date Back pain of lumbar region with sciatica 018 Immunizations Name Administration Dates Next Due Boostrix (Tdap) 11/27/2022 Family History Medical History Relation Name Comments Hypertension Father Relation Name Status Comments Father Social History Tobacco Use Types Packs/Day Years Used Date Smoking Tobacco: Former Cigarettes 1 Q uit: 1997 Smokeless Tobacco: Never Tobacco Cessation:Counseling Given: Not Answered Alcohol Use Standard Drinks/Week Comments Not Currently 0 (1 standard drink = 0.6 oz pur e alcohol) Sex and Gender Information Value Date Recorded Sex Assigned at Male 11/26/2022 10:30 PM EST Gender Identity Not on file Sexual Orientation Not on file Job Start Date Occupation Industry Not on file Not on file Not on file Last Filed Vital Signs Vital Sign Reading Time Taken Comments Blood Pressure 138/71 08/05/2023 3:26 PM EST Pulse 78 08/05/2023 3:26 PM EST Temperature 36.6 ??C (97.8 ??F) 08/05/2023 3:26 PM ES T Respiratory Rate 18 11/26/2022 10:3 4 PM EST Oxygen Saturation 98% 08/05/2023 3:26 PM EST Inhaled Oxygen Concentration - - Weight 139.9 kg (308 lb 6.4 oz) 08/05/2023 3:26 PM EST Height 180.3 cm (5' 11 ) 08/05/2023 3:26 PM EST Body Mass Index 43.01 08/05/2023 3:26 PM EST Plan of Treatment Health Maintenance Due Date Last Done Comments Hepatitis C Screening 1960 COVID-19 Vaccine (#1) 01/27/1961 Depression Screening 1972 Preventative Health Evaluation 1978 Tobacco Cessation Counseling 1978 Colon Cancer Screening (Colonoscopy) 2005 Shingrix-Zoster Vaccine (1 of 2) 2010 Influenza Vaccine (#1) 2024 Pneumococcal Vaccine (1 of 1 - PCV) 2025 DTap / Tdap / Td (2 - Td or Tdap) 11/27/2032 023 RSV Adult > 60+ Yrs or Pregn ant (1 - 1-dose 75+ series) 2035 Hepatitis B Vaccines Aged Out No long er eligible based on patient's age to complete this topic Pneumococcal Vaccine Aged Out No long er eligible based on patient's age to complete this topic RSV Ped < 20 months Aged Out No longe r eligible based on patient's age to complete this topic Care Teams Vehicle Mechanic Relationship Specialty Start Date End Date Deandre Jones MD PCP - General Internal Medicine 11/26/22
--- OUTSIDE RECORDS SUMMARY | 2025-01-03 17:27 | XMS_ITS ---
Author Name [facility] Organization Unknown Encounters Encounter Type Encounter Reason Primary Diagnosis Location Date Ambulatory [facility] 02/15/2024 Care Team Organization Name Specialty Phone Email Start Date End Da jeff [facility] 202212/07/2024 [facility] 11/2611/26/2022
== END 2025-01-03 14:43 | disposition home or self-care (01) ==
LOC: HO.HOS 14:25
PROVIDERS: PCP Internal Medicine; Visit Provider Orthopaedic Surgery
DX: M25.511 Pain in right shoulder (principal)
CPT/HCPCS: 99213

== ENCOUNTER → 2025-01-03 14:25 | Outpatient (BNVA) | payer BC, SELFPAY | PROVIDERS: PCP Internal Medicine; Visit Provider Orthopaedic Surgery ==

== ENCOUNTER 2025-03-06 14:42 | Outpatient (AMB) | payer BC, SELFPAY ==
--- NOTE | 2025-03-06 14:44 | MHC.OFFVIS ---
Intake Visit Reasons: OV- RT shoulder 09/14/24 Intake Note: Yogesh is a 64 year old male who presents for routine follow-up after undergoing right shoulder arthroscopic surgery on 09/14/24. The patient reports mild to moderate discomfort in his right shoulder. He denies any fevers or chills. He does not take any medicines for his discomfort. He continues with his home stretching program. Allergies No Known Allergies Allergy (Verified 03/06/25 14:56) Medication List - Last Reconciled 03/06/25 by Rachid Moody MD amlodipine 10 mg PO QNOON hydrochlorothiazide 12.5 mg PO DAILY lorazepam 0.5 mg PO DAILY PRN metformin 500 mg PO QPM paroxetine HCl 20 mg PO DAILY semaglutide (Ozempic) 0.25 mg subcut QWEEK testosterone 1 pump topical DAILY valsartan 160 mg PO DAILY PFSH Medical History (Updated 09/14/24 @ 06:36 by Erica Crane RN) Pre-diabetes Anxiety Obesity Diabetes HTN (hypertension) Aortic stenosis Skin cancer COVID-19 Murmur Surgical History (Updated 09/14/24 @ 06:24 by Erica Crane, RADHA) History of dental surgery H/O colonoscopy History of testicular surgery Hx of knee surgery Social History Are you a primary nurse behavioral health care to a significant other at home: No Do you presently have visiting nurse or other home services: No Patient Tobacco Use Status: Never used Tobacco Current occupational status: employed 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 Jackson continues to do fairly well after undergoing right shoulder arthroscopic surgery on 09/14/2024. He does have residual discomfort due to rotator cuff tendinosis. I had a lengthy discussion with the patient regarding the treatment options. He wishes to hold off on a cortisone injection today. The do's and don'ts of lifting were discussed at length with the patient. He will contact me prior to his follow-up appointment in 3 months should his symptoms worsen in any way. Feel free to call me at any time should questions regarding his orthopedic management arise. I spent 22 minutes in reviewing the patient's records and imaging studies, seeing the patient and documenting in the medical record. Coding Level of Care Code Est Pt Level 3 (58302) Complex EM visit Add On G2211 Diagnoses Right shoulder pain M25.511
--- OUTSIDE RECORDS SUMMARY | 2025-03-06 16:55 | XMS_ITS | Clinical Summary ---
Author Organization [facility] Address [address] [place] [address] Care Team Providers Care Director Of Donor Relations Name Role Phone Deandre Jones MD Primary [...] 78 08/05/2023 3:26 PM EST Temperature 36.6 C (97.8 F) 08/05/2023 3:26 PM EST Respiratory Rate 18 11/26/2022 10:3 4 PM [...] Vaccine (1 of 2) 2010 Influenza Vaccine (Season Ended) 2025 Pneumococcal Vaccine (1 of 1 - PCV) [...] age to complete this topic Care Teams Director Of Donor Relations Relationship Specialty Start Date End Date Deandre Jones MD PCP - General Internal Medicine 11/26/22
== END 2025-03-06 15:13 | disposition home or self-care (01) ==
LOC: HO.HOS 14:43
PROVIDERS: PCP Internal Medicine; Visit Provider Orthopaedic Surgery
DX: M25.511 Pain in right shoulder (principal)
CPT/HCPCS: 99213

== ENCOUNTER → 2025-03-06 14:42 | Outpatient (BNVA) | payer BC, SELFPAY | PROVIDERS: PCP Internal Medicine; Visit Provider Orthopaedic Surgery ==

== ENCOUNTER 2025-06-10 12:53 | Outpatient (AMB) | payer BC, SELFPAY ==
--- NOTE | 2025-06-10 12:59 | A.OFFVIS_ITS ---
Vital Signs 06/10/25 13:01 Height 5 ft 11 in Weight 289 lb BMI 40.3 Intake Visit Reasons: OV: RT shoulder 09/14/24 Intake Note: Yogesh is a 64 year old man who presents with complaints of mild intermittent discomfort in his right shoulder after undergoing right shoulder arthroscopic surgery on 09/14/2024. He continues with his home stretching program. The rajinder ent states that he recently fell down several stairs. He did have ?numbness? in his right arm temporarily after the fall. The numbness has subsided. Allergies No Known Allergies Allergy (Verified 06/10/25 13:02) Medication List - Last Reconciled 06/10/25 by Rachid Moody MD amlodipine 10 mg PO QNOON hydrochlorothiazide 12.5 mg PO DAILY lorazepam 0.5 mg PO DAILY PRN metformin 500 mg PO QPM paroxetine HCl 20 mg PO DAILY semaglutide (Ozempic) 0.25 mg subcut QWEEK testosterone 1 pump topical DAILY valsartan 160 mg PO DAILY PFSH Medical History (Updated 09/14/24 @ 06:36 by Erica Crane RN) Pre-diabetes Anxiety Obesity Diabetes HTN (hypertension) Aortic stenosis Skin cancer COVID-19 Murmur Surgical History (Updated 09/14/24 @ 06:24 by Erica Crane RN) History of dental surgery H/O colonoscopy History of testicular surgery Hx of knee surgery Social History Are you a primary reproductive healthcare assistant to a significant other at home: No Do you presently have visiting nurse or other home services: No Patient Tobacco Use Status: Never used Tobacco Current occupational status: employed 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 Jackson continues to do well after undergoing right shoulder arthroscopic surgery. He will continue with his home exercise program. The do's and don'ts of lifting were discussed at length with the patient. He will follow up with me on an as-needed basis should any questions or concerns arise. I spent 20 minutes in reviewing the patient's records and imaging studies, seeing the patient and documenting in the medical record. Coding Level of Care Code Est Pt Level 3 (72980) Complex EM visit Add On G2211 Diagnoses Right shoulder pain M25.511
[2025-06-10 13:01] VITALS: BMI 40.3
--- OUTSIDE RECORDS SUMMARY | 2025-06-10 15:19 | XMS_ITS | Patient Health Record ---
Author Organization [facility] Address [address]
== END 2025-06-10 13:15 | disposition home or self-care (01) ==
LOC: HO.HOS 12:54
PROVIDERS: PCP Internal Medicine; Visit Provider Orthopaedic Surgery
DX: M25.511 Pain in right shoulder (principal)
CPT/HCPCS: 99213

== ENCOUNTER 2025-08-08 13:02 | Outpatient (REF) | payer BC, SELFPAY ==
--- OUTSIDE RECORDS SUMMARY | 2025-06-24 08:00 | XMS_ITS ---
Author Organization [facility] Address [address], [place] [id number] Care Team Providers Care Pipe Washer Name Role Phone SABINE LUO Primary Care Provider [phone] ALLERGIES No Known Allergies RESULTS Component Value Reference Range Notes XR Hip Left with Pelvis 2-3 views Reviewed date:07/03/2025 05:32:50 PM Interpretation: Performing Lab: Notes/Report: REASON FOR VISIT 41/ 3mo MEDICATIONS Medication SIG (Take, Route, Frequency, Duration) Notes Start Date End Date Status PARoxetine HCl 20 mg 1 tablet in the mor marvin Orally Once a day Active Sildenafil Citrate 100 MG take 1 tablet by oral route every day as needed approximately 1 hour before sexual activity Oral Once a day for 30 day(s) 08/20/2022 Active Valsartan 160 MG TAKE 1 TABLET BY MILAGROS TH EVERY DAY Active hydroCHLOROthiazide 12.5 MG 1 tablet in the morning Orally Once a day Active Mounjaro 7.5 MG/0.5ML as directed Subcut aneous every 7 days for 28 days 06/24/2025 Active metFORMIN HCl 500 MG 1 tablet with a martin l Orally Once a day Active LORazepam 0.5 MG 1 tablet at bedtime as needed Orally Once a day for 30 days 01/30/2025 Active amLODIPine Besylate 10 MG 1 tablet Orall y Once a day Active SOCIAL HISTORY Tobacco Use: Social History Observation Description Date Details (start date - stop date) Former Smoker NA - NA Sex Assigned At : Social History Observation Description Sex Assigned At Unknown Smoking Question Answer Notes Are you a: former smoker How long has it been since you last smoked? > 10 years VITAL SIGNS Height 71.00 in 06/24/2025 Weight 290 lbs 06/24/2025 Blood pressure systolic 110 mm Hg 06/24/20 25 Blood pressure diastolic 70 mm Hg 025 BMI 40.44 kg/m2 06/24/2025 Encounters Encounter Location Date Provider Diagnosis [facility] [address] [place] [address] 06/24/2025 SABINE LUO Type 2 diabetes mellitus without complication, without long-term current use of insulin E11.9 ; Morbid (severe) obesity due to excess calories E66.01 ; Essential (primary) hypertension I10 ; Left hip pain M25.552 and Aortic stenosis, moderate I35.0 ASSESSMENTS Encounter Date Diagnosis Assessment Notes Treatment Notes Treatment Clinical Notes Section Notes 06/24/2025 Type 2 diabetes mellitus without complication, without long-term current use of insulin (ICD-10 - E11.9) 1. Type 2 DM: well controlled A1c 6.0 on present therapy Will trial changing Rx for weight purposes as below. Continue Metformin 2: Obesity : Trial of changing Ozempic to Mounjaro and follow Recheck 3 months 3. Hypertension: Stable on present amlodipine, HCTZ, and valsartan 4. Left hip pain:? bursitis or tendonitis Check Xray and consider Sports Medicine 5. Aortic Stenosis _ moderate No sx await follow up Echo in 06/24/2025 Morbid (severe) obesity due to excess calories (ICD-10 - E66.01) 1. Type 2 DM: well controlled A1c 6.0 on present therapy Will trial changing Rx for weight purposes as below. Continue Metformin 2: Obesity : Trial of changing Ozempic to Mounjaro and follow Recheck 3 months 3. Hypertension: Stable on present amlodipine, HCTZ, and valsartan 4. Left hip pain:? bursitis or tendonitis Check Xray and consider Sports Medicine 5. Aortic Stenosis _ moderate No sx await follow up Echo in 06/24/2025 Essential (primary) hypertension (ICD-10 - I10) 1. Type 2 DM: well controlled A1c 6.0 on present therapy Will trial changing Rx for weight purposes as below. Continue Metformin 2: Obesity : Trial of changing Ozempic to Mounjaro and follow Recheck 3 months 3. Hypertension: Stable on present amlodipine, HCTZ, and valsartan 4. Left hip pain:? bursitis or tendonitis Check Xray and consider Sports Medicine 5. Aortic Stenosis _ moderate No sx await follow up Echo in 06/24/2025 Left hip pain (ICD-10 - M25.552) 1. Type 2 DM: well controlled A1c 6.0 on present therapy Will trial changing Rx for weight purposes as below. Continue Metformin 2: Obesity : Trial of changing Ozempic to Mounjaro and follow Recheck 3 months 3. Hypertension: Stable on present amlodipine, HCTZ, and valsartan 4. Left hip pain:? bursitis or tendonitis Check Xray and consider Sports Medicine 5. Aortic Stenosis _ moderate No sx await follow up Echo in 06/24/2025 Aortic stenosis, moderate (ICD-10 - I35.0) 1. Type 2 DM: well controlled A1c 6.0 on present therapy Will trial changing Rx for weight purposes as below. Continue Metformin 2: Obesity : Trial of changing Ozempic to Mounjaro and follow Recheck 3 months 3. Hypertension: Stable on present amlodipine, HCTZ, and valsartan 4. Left hip pain:? bursitis or tendonitis Check Xray and consider Sports Medicine 5. Aortic Stenosis _ moderate No sx await follow up Echo in sep PLAN OF TREATMENT Medication Medication Name Sig Start Date Stop Date Notes Valsartan 160 MG TAKE 1 TABLET BY MILAGROS TH EVERY DAY hydroCHLOROthiazide 12.5 MG 1 tablet in the morning Orally Once a day Mounjaro 7.5 MG/0.5ML as directed Subcut aneous every 7 days for 28 days 06/24/2025 Ozempic (2 MG/DOSE) 8 MG/3ML INJECT 2MG SUBCUTANEOUSLY ONCE WEEKLY amLODIPine Besylate 10 MG 1 tablet Orally Once a day Next Appt Details Provider Name:SABINE LUO , 09/24/2025 01:15:00 PM, [address] [place], [address], Progress Notes * Examination Category Sub-Category Detail Notes Category Not es General Examination Heart: 2/6 GARCIA aortic - RSR, normal S1S2 Lungs: clear to auscultatio n Abdomen: soft, non tender/non distended Extremities: no edema General Appearance no apparent distress , pleasant, obese Psych: alert, oriented X 3 Other normal affect Musculoskeletal tender over left pel angie brim History and Physical Notes * HPI (History of Present Illness) Category Sub-Category Detail Notes Category Not es General Patient is here for f/u. Wants to change from Ozempic to Mounjaro - not losing weight. He denies chest pain, palpitations and SOB. Has follow up Echo in Sep for Aortic stenosis
--- OUTSIDE RECORDS SUMMARY | 2025-06-25 01:20 | XMS_ITS ---
Author Organization [facility] Address [address] [place], [place] [id number] Care Team Providers Care Compensator Name Role Phone SABINE LUO Primary Care Provider REASON FOR VISIT lab Encounters Encounter Location Date Provider Diagnosis [facility] [address] [place] [address] 06/25/2025 SABINE LUO PLAN OF TREATMENT Next Appt Details Provider Name:SABINE LUO , 09/24/2025 01:15:00 PM, [address] [place], [address],
--- OUTSIDE RECORDS SUMMARY | 2025-07-03 09:01 | XMS_ITS ---
Author Organization [facility] Address [address] [place], [place] [id number] Care Team Providers Care Lumber Piler Operator Name Role Phone VALERIO SABINE Primary Care Provider REASON FOR REFERRAL Reason 07/11/25 w appt Appt [facility] New patient Diagnosis 1 Pain in right hip (M 25.551) Diagnosis 2 Pain in left hip (M2 5.552) Referral Organization [facility] Referring Provider First Name SABINE Referring Provider Last Name VALERIO Referring Provider Speciality Internal M edicine Referred Provider Specialty Physiatry General Notes Amanda MANCUSO Admin 08:36:02 AM > [facility] [phone]>faxed separately is , 06/28/25XrayLHipW/Pelvis, requesting an URGENT appt , no referral required Referral Priority Urgent REASON FOR VISIT (2) Hip pain Encounters Encounter Location Date Provider Diagnosis [facility] [address] [place] [address] 07/03/2025 SABINE LUO Pain in right hip M25.551 and Pain in left hip M25.552 ASSESSMENTS Encounter Date Diagnosis Assessment Notes Treatment Notes Treatment Clinical Notes Section Notes 07/03/2025 Pain in right hip (ICD-10 - M25.551) 07/03/2025 Pain in left hip (ICD-10 - M25.552) PLAN OF TREATMENT Referrals Referral Date Details 07/11/25 w appt Appt [facility] New patient Next Appt Details Provider Name:SABINE LUO , 09/24/2025 01:15:00 PM, [address] [place], [address], Consultation Request Notes Referral Date Referring Provider Referred Provider Not socorro 07/03/2025 SABINE LUO , 07/11/25 w dean t Appt [facility]SS[facility] New patient
--- OUTSIDE RECORDS SUMMARY | 2025-07-06 13:34 | XMS_ITS ---
Author Organization [facility] Address [address] [place], [place] [id number] Care Team Providers Care Colored Liquid Plastic Applier Name Role Phone SABINE LUO Primary Care Provider REASON FOR VISIT KEILY Reyez Encounters Encounter Location Date Provider Diagnosis [facility] [address] [place] [address] 07/06/2025 SABINE LUO PLAN OF TREATMENT Next Appt Details Provider Name:SABINE LUO , 09/24/2025 01:15:00 PM, [address] [place], [address],
--- OUTSIDE RECORDS SUMMARY | 2025-07-08 04:22 | XMS_ITS ---
Author Organization [facility] Address [address] [place], [place] [id number] Care Team Providers Care Cableman Name Role Phone SABINE LUO Primary Care Provider [phone] REASON FOR VISIT KEILY NUNEZ:New Medication Encounters Encounter Location Date Provider Diagnosis [facility] [address] [place] [address] 07/08/2025 SABINE LUO PLAN OF TREATMENT Next Appt Details Provider Name:SABINE LUO , 09/24/2025 01:15:00 PM, [address] [place], [address],
--- OUTSIDE RECORDS SUMMARY | 2025-07-12 12:16 | XMS_ITS ---
Author Organization [facility] Address [address] [place], [place] [id number] Care Team Providers Care Miller Helper Name Role Phone SABINE LUO Primary Care Provider REASON FOR VISIT RE:KEILY Reyez- RE:New Medication Encounters Encounter Location Date Provider Diagnosis [facility] [address] [place] [address] 07/12/2025 SABINE LUO PLAN OF TREATMENT Next Appt Details Provider Name:SABINE LUO , 09/24/2025 01:15:00 PM, [address] [place], [address],
--- OUTSIDE RECORDS SUMMARY | 2025-07-24 06:22 | XMS_ITS ---
Author Organization [facility] Address [address] [place], [place] [phone] Care Team Providers Care Wheat And Oats Flake Miller Name Role Phone SABINE LUO Primary Care Provider REASON FOR VISIT (H)Mounjaro Encounters Encounter Location Date Provider Diagnosis [facility] [address] [place] [address] 07/24/2025 SABINE LUO PLAN OF TREATMENT Next Appt Details Provider Name:SABINE LUO , 09/24/2025 01:15:00 PM, [address] [place], [address],
--- OUTSIDE RECORDS SUMMARY | 2025-07-26 09:31 | XMS_ITS ---
Author Organization [facility] Address [address] [place], [place] [phone] Care Team Providers Care Sales Broker Name Role Phone SABINE LUO Primary Care Provider REASON FOR VISIT 2nd part of message Encounters Encounter Location Date Provider Diagnosis [facility] [address] [place] [address] 07/26/2025 SABINE LUO PLAN OF TREATMENT Next Appt Details Provider Name:SABINE LUO , 09/24/2025 01:15:00 PM, [address] [place], [address],
--- OUTSIDE RECORDS SUMMARY | 2025-07-26 10:07 | XMS_ITS ---
Author Organization [facility] Address [address] [place], [place] [phone] Care Team Providers Care Casting Cleaner Name Role Phone SABINE LUO Primary Care Provider REASON FOR VISIT RE:2nd part of message MEDICATIONS Medication SIG (Take, Route, Fr equency, Duration) Notes Start Date End Date Status Mounjaro 5 MG/0.5ML as directed Subcutan eous every 7 days for 28 days 07/26/2025 Active Encounters Encounter Location Date Provider Diagnosis [facility] [address] [place] [address] 07/26/2025 SABINE LUO PLAN OF TREATMENT Medication Medication Name Sig Start Date Stop Date Notes Mounjaro 5 MG/0.5ML as directed Subcutan eous every 7 days for 28 days 07/26/2025 Next Appt Details Provider Name:SABINE LUO , 09/24/2025 01:15:00 PM, [address] [place], [address],
--- OUTSIDE RECORDS SUMMARY | 2025-07-26 11:22 | XMS_ITS ---
Author Organization [facility] Address [address] [place], [place] [phone] Care Team Providers Care Author Agent Name Role Phone SABINE LUO Primary Care Provider REASON FOR VISIT RE:RE:2nd part of message Encounters Encounter Location Date Provider Diagnosis [facility] [address] [place] [address] 07/26/2025 SABINE LUO PLAN OF TREATMENT Next Appt Details Provider Name:SABINE LUO , 09/24/2025 01:15:00 PM, [address] [place], [address],
--- NOTE | ~2025-08-08 | XR_ITS ---
EXAMINATION: XR KNEE, RIGHT CLINICAL INFORMATION: M25.561 - Pain in right knee COMPARISON: None available. TECHNIQUE: Three views of the right knee. FINDINGS: No fracture, dislocation, or suspicious bone lesion. Normal bone mineralization. Normal alignment. Minimal medial and patellofemoral compartment joint space narrowing. Minimal spurring of the tibial spines. Normal patellar alignment. No significant joint effusion. Soft tissues appear normal. XR/XR knee RT 3V IMPRESSION: 1. No acute bony or soft tissue abnormalities of the right knee. 2. Very mild degenerative arthritis in the medial and patellofemoral compartments. Electronically signed by: Monico Mitchell MD 08/08/2025 02:17 PM EST
--- OUTSIDE RECORDS SUMMARY | 2025-08-08 18:41 | XMS_ITS | Patient Health Record ---
Author Organization [facility] Address [address] [place], [place] [id number] Care Team Providers Care Aircraft Accessories Mechanic Name Role Phone SABINE LUO Primary Care Provider ALACHUA, NURSING Unavailable [phone] STEVEN WILKINSON Unavailable [phone] ALLERGIES No Known Allergies REASON FOR REFERRAL Reason (2)09/04/24 w appt Diagnosis 1 Aortic stenosis, mod erate (I35.0) Referral Organization [facility] Referring Provider First Name SABINE Referring Provider Last Name VALERIO Referring Provider Speciality Internal M edicine Referred Provider VASQUEZ CUMMINGS Referred Provider Specialty Cardiovascul ar Disease General Notes Amanda MANCUSO P Admin 10:18:57 AM > per pt request medical referral, notes and labs have been faxed to [facility] at [phone]>also faxed echo, ekg and treadmill stress test separately, Lilian MANCUSO Call Center 09/04/2024 02:14:09 PM >Pt called and advised of the above, Catrachita MANCUSO Call Center 09/05/2024 02:26:27 PM >Trish/ELVIS asking for dx code to be faxed w/ referral: fax [phone], phone [phone]. See message started., Amanda MANCUSO Admin 09/05/2024 03:12:27 PM > faxed Trish to let her know the dx code for pt is I35.0 Aortic stenosis Referral Priority Routine Reason 07/11/25 w appt Appt PSSP New patient Diagnosis 1 Pain in right hip (M 25.551) Diagnosis 2 Pain in left hip (M2 5.552) Referral Organization [facility] Referring Provider First Name SABINE Referring Provider Last Name VALERIO Referring Provider Speciality Internal M edicine Referred Provider Specialty Physiatry General Notes Amanda MANCUSO Admin 08:36:02 AM > faxed medical referral and note to [facility] at [phone]>faxed separately is , 06/28/25XrayLHipW/Pelvis, requesting an URGENT appt , no referral required Referral Priority Urgent MEDICATIONS Medication SIG (Take, Route, Frequency, Duration) Notes Start Date End Date Status metFORMIN HCl 500 MG 1 tablet with a martin l Orally Once a day Active LORazepam 0.5 MG 1 tablet at bedtime as needed Orally Once a day for 30 days 01/30/2025 Active PARoxetine HCl 20 mg 1 tablet in the mor marvin Orally Once a day Active amLODIPine Besylate 10 MG 1 tablet Orall y Once a day Active Sildenafil Citrate 100 MG take 1 tablet by oral route every day as needed approximately 1 hour before sexual activity Oral Once a day for 30 day(s) 08/20/2022 Active Valsartan 160 MG TAKE 1 TABLET BY MILAGROS TH EVERY DAY Active hydroCHLOROthiazide 12.5 MG 1 tablet in the morning Orally Once a day Active Mounjaro 5 MG/0.5ML as directed Subcutan eous every 7 days for 28 days 07/26/2025 Active Mounjaro 7.5 MG/0.5ML as directed Subcut aneous every 7 days for 28 days 06/24/2025 Active IMMUNIZATIONS Vaccine Route Administration Date Status Comme nts Td (Tetanus Diphtheria) IM Intramuscular 01/03/2025 Admini stered SARSCOV2 VAC BVL 3MCG/0.2ML Pfizer Unknown 08/07/2021 Administered Influenza, Fluzone Quad IM Intramuscular 08/04/2023 Admini stered SOCIAL HISTORY Tobacco Use: Social History Observation Description Date Details (start date - stop date) Former Smoker NA - NA Sex Assigned At : Social History Observation Description Sex Assigned At Unknown Smoking Question Answer Notes Are you a: former smoker How long has it been since you last smoked? > 10 years PROBLEMS Problem Type ICD Code Onset Dates Problem Status W/U Status Risk SNOMED Code Notes Problem Essential (primary) hypertension (I10) Active confirmed 05386526 Problem Thrombocytopenia (D69.6) Active confirmed 661620538 Problem Morbid (severe) obesity due to excess calories (E66.01) Active confirmed 26481084195205 Problem Primary insomnia (F51.01) Active confirmed 4213185 Problem Aortic stenosis, moderate (I35.0) Active confirmed 653825915 Problem Type 2 diabetes mellitus with hyperglycemia, without long-term current use of insulin (E11.65) Active confirmed 63623920 Problem Type 2 diabetes mellitus without complication, without long-term current use of insulin (E11.9) Active confirmed Type II diab etes mellitus without complication (245810488) Problem Bleeding external hemorrhoids (K64.4) Active confirmed 98825242 Problem Body mass index [BMI] 40.0-44.9, adult (Z68.41) Active confirmed 855819381 VITAL SIGNS Blood pressure diastolic 70 mm Hg 06/24/2025 Height 71.00 in 06/24/2025 Blood pressure systolic 110 mm Hg 06/24/2025 Weight 290 lbs 06/24/2025 BMI 40.44 kg/m2 06/24/2025 Encounters Encounter Location Date Provider Diagnosis [address] [address] 08/20/[address] [address] 08/28/[address] [address] 08/28/2024 [facility] Type 2 diabetes mellitus without complication, without long-term current use of insulin E11.9 ; Aortic stenosis, moderate I35.0 ; Essential (primary) hypertension I10 and Morbid (severe) obesity due to excess calories E66.[address] [address] 08/29/[address] [address] 08/30/[address] [address] 09/03/[address] [address] 09/05/2024 [facility] [address] [place] [address] 09/11/2024 [facility] [address] [place] [address] 09/15/2024 STEVEN OJEDARIKASHIF Pain R52 [facility] [address] [place] [address] 09/15/2024 [facility] [address] [place] [address] 09/21/2024 [facility] [address] [place] [address], [place] [address] 10/11/2024 [facility] [address] [place] [address], [place] [address] 10/29/2024 [facility] [address] [place] [address], [place] [address] 10/30/2024 [facility] Bleeding external hemorrhoids K64.4 [facility] [address] [place] [address], [place] [address] 11/21/2024 [facility] Type 2 diabetes mellitus without complication, without long-term current use of insulin E11.9 [facility] [address] [place] [address], [place] [address] 11/21/2024 [facility] [address] [place] [address], [place] [address] 11/25/2024 [facility] [address] [place] [address] 11/27/2024 [facility] [address] [place] [address] 12/11/2024 [facility] [address] [place] [address] 12/11/2024 [facility] Type 2 diabetes mellitus without complication, without long-term current use of insulin E11.9 ; Morbid (severe) obesity due to excess calories E66.01 ; Aortic stenosis, moderate I35.0 and Essential (primary) hypertension I10 [facility] [address] [place] [address] 12/11/2024 [facility] [address] [place] [address] 01/03/2025 [facility] [address] [place] [address] 01/03/2025 NURSING ALACHUA Encounter for immunization Z23 [facility] [address] [place] [address], [place] [address] 01/30/[address] [address] 03/11/2025 [facility] Type 2 diabetes mellitus without complication, without long-term current use of insulin E11.[address] [place] [address] 03/12/[address] [address] 03/26/[address] [address] 03/26/2025 [facility] Type 2 diabetes mellitus without complication, without long-term current use of insulin E11.9 ; Morbid (severe) obesity due to excess calories E66.01 ; Aortic stenosis, moderate I35.0 and Essential (primary) hypertension I10 [address] [place] [address] 05/06/[address] [address] 05/06/2025 [facility] Chest pain, unspecified type R07.9 and Type 2 diabetes mellitus without complication, without long-term current use of insulin E11.[address] [address] 05/19/[address] [address] 06/01/[address] [address] 06/01/[address] [address] 06/24/2025 [facility] Type 2 diabetes mellitus without complication, without long-term current use of insulin E11.9 ; Morbid (severe) obesity due to excess calories E66.01 ; Essential (primary) hypertension I10 ; Left hip pain M25.552 and Aortic stenosis, moderate I35.0 [facility] [address] [place] [address] 06/25/2025 [facility] [address] [place] [address] 07/03/2025 SABINE [place] Pain in right hip M25.551 and Pain in left hip M25.552 [facility] [address] [place] [address] 07/06/2025 [facility] [address] [place] [address] 07/08/2025 [facility] [address] [place] [address] 07/12/2025 [facility] [address] [place] [address], [place] [address] 07/24/2025 [facility] [address] [place] [address], [place] [address] 07/26/2025 [facility] [address] [place] [address], [place] [address] 07/26/2025 [facility] [address] [place] [address], [place] [address] 07/26/2025 SABINE [place] ASSESSMENTS Encounter Date Diagnosis Assessment Notes Treatment Notes Treatment Clinical Notes Section Notes 08/28/2024 Aortic stenosis, moderate (ICD-10 - I35.0) 1. Diabetes: A1c stable at 6.0 Follow on presnet therapy 2. Aortic Stenosis : moderate by Echo Plan to recheck yearly 3. Hypertension: Stable on presnet therapy Follow on current meds 4. Obesity: Discussed increasing Ozempic to 10 mg next in the near future Follow 08/28/2024 Type 2 diabetes mellitus without complication, without long-term current use of insulin (ICD-10 - E11.9) 1. Diabetes: A1c stable at 6.0 Follow on presnet therapy 2. Aortic Stenosis : moderate by Echo Plan to recheck yearly 3. Hypertension: Stable on presnet therapy Follow on current meds 4. Obesity: Discussed increasing Ozempic to 10 mg next in the near future Follow 09/15/2024 Pain (ICD-10 - R52) He had shoulder surgery yesterday by Dr. Chadwick and is in a good deal of pain. He was given a prescription for 5 mg oxycodone tablets to take home. He called today to inquire as to whether it is safe to take this with his medications. He was particularly concerned about paroxetine. We reviewed his medication list. He has not taken any lorazepam in months and has not taken Ozempic in 2 weeks. I am not concerned about his other meds with which he was reassured. 10/30/2024 Bleeding external hemorrhoids (ICD-10 - K64.4) 1. Hemorrhoids: Rx Anusol HC and start metamucil daily for constipation. Reassess if not better 11/21/2024 Type 2 diabetes mellitus without complication, without long-term current use of insulin (ICD-10 - E11.9) 12/11/2024 Morbid (severe) obesity due to excess calories (ICD-10 - E66.01) 1. Diabetes: A1c was stable at 6.0. Will adjust Ozempic dosing for weight concern reasons below 2. Morbid obesity: We will trial increasing the Ozempic to 2 mg. Emphasized that he needs to work at diet and exercise as well and not expect the medication to substitute for days. If he is not improving we may consider switching to Mounjaro 3. Moderate aortic stenosis: Saw cardiology. Will continue to follow serial echocardiograms. No change in recommendations today 4. Hypertension: Well-controlled on present therapy. No changes made today 12/11/2024 Type 2 diabetes mellitus without complication, without long-term current use of insulin (ICD-10 - E11.9) 1. Diabetes: A1c was stable at 6.0. Will adjust Ozempic dosing for weight concern reasons below 2. Morbid obesity: We will trial increasing the Ozempic to 2 mg. Emphasized that he needs to work at diet and exercise as well and not expect the medication to substitute for days. If he is not improving we may consider switching to Mounjaro 3. Moderate aortic stenosis: Saw cardiology. Will continue to follow serial echocardiograms. No change in recommendations today 4. Hypertension: Well-controlled on present therapy. No changes made today 01/03/2025 Encounter for immunization (ICD-10 - Z23) 03/26/2025 Morbid (severe) obesity due to excess calories (ICD-10 - E66.01) 1. Type 2 diabetes mellitus: A1c is stable at 6.0. Will observe effect of increasing Ozempic in recent weeks. 2. Obesity: Weight is plateaued. Just recently started the 2 mg dose and we will need to see if he can tolerate it in the coming weeks and if not dropped down to the 1 mg dose. I have explained to him that he cannot have the medication operate in a vacuum. If he does nothing dietary de leon or exercise de leon to help the effect of the medicine will not be maximized 3. Aortic stenosis: Last echo was in June. We will plan to recheck in the fall 4. Hypertension: This is stable on present therapy. No changes made today 03/26/2025 Type 2 diabetes mellitus without complication, without long-term current use of insulin (ICD-10 - E11.9) 1. Type 2 diabetes mellitus: A1c is stable at 6.0. Will observe effect of increasing Ozempic in recent weeks. 2. Obesity: Weight is plateaued. Just recently started the 2 mg dose and we will need to see if he can tolerate it in the coming weeks and if not dropped down to the 1 mg dose. I have explained to him that he cannot have the medication operate in a vacuum. If he does nothing dietary de leon or exercise de leon to help the effect of the medicine will not be maximized 3. Aortic stenosis: Last echo was in June. We will plan to recheck in the fall 4. Hypertension: This is stable on present therapy. No changes made today 03/11/2025 Type 2 diabetes mellitus without complication, without long-term current use of insulin (ICD-10 - E11.9) 06/24/2025 Morbid (severe) obesity due to excess [...] sx await follow up Echo in 06/24/2025 Type 2 diabetes mellitus without complication, [...] No sx await follow up Echo in 05/06/2025 Chest pain, unspecified type (ICD-10 - R07.9) 1. Chest pain: Appears musculoskeletal. EKG is unchanged and history is atypical. He had a negative stress test last fall. Will check x-rays of the ribs and trial naproxen twice a day with food 2. Type 2 diabetes mellitus: He is frustrated that he is not losing weight on the Ozempic. He has not been working at his diet at all however. I stressed the importance of this in conjunction with the therapy. We may consider changing to Mounjaro when he is next due for refill around the time of his next appointment 05/06/2025 Type 2 diabetes mellitus without complication, without long-term current use of insulin (ICD-10 - E11.9) 1. Chest pain: Appears musculoskeletal. EKG is unchanged and history is atypical. He had a negative stress test last fall. Will check x-rays of the ribs and trial naproxen twice a day with food 2. Type 2 diabetes mellitus: He is frustrated that he is not losing weight on the Ozempic. He has not been working at his diet at all however. I stressed the importance of this in conjunction with the therapy. We may consider changing to Mounjaro when he is next due for refill around the time of his next appointment 07/03/2025 Pain in left hip (ICD-10 - M25.552) 07/03/2025 Pain in right hip (ICD-10 - M25.551) 08/28/2024 Essential (primary) hypertension (ICD-10 - I10) 1. Diabetes: A1c stable at 6.0 Follow on presnet therapy 2. Aortic Stenosis : moderate by Echo Plan to recheck yearly 3. Hypertension: Stable on presnet therapy Follow on current meds 4. Obesity: Discussed increasing Ozempic to 10 mg next in the near future Follow 12/11/2024 Aortic stenosis, moderate (ICD-10 - I35.0) 1. Diabetes: A1c was stable at 6.0. Will adjust Ozempic dosing for weight concern reasons below 2. Morbid obesity: We will trial increasing the Ozempic to 2 mg. Emphasized that he needs to work at diet and exercise as well and not expect the medication to substitute for days. If he is not improving we may consider switching to Mounjaro 3. Moderate aortic stenosis: Saw cardiology. Will continue to follow serial echocardiograms. No change in recommendations today 4. Hypertension: Well-controlled on present therapy. No changes made today 03/26/2025 Aortic stenosis, moderate (ICD-10 - I35.0) 1. Type 2 diabetes mellitus: A1c is stable at 6.0. Will observe effect of increasing Ozempic in recent weeks. 2. Obesity: Weight is plateaued. Just recently started the 2 mg dose and we will need to see if he can tolerate it in the coming weeks and if not dropped down to the 1 mg dose. I have explained to him that he cannot have the medication operate in a vacuum. If he does nothing dietary de leon or exercise de leon to help the effect of the medicine will not be maximized 3. Aortic stenosis: Last echo was in June. We will plan to recheck in the fall 4. Hypertension: This is stable on present therapy. No changes made today 06/24/2025 Essential (primary) hypertension (ICD-10 - I10) [...] No sx await follow up Echo in 08/28/2024 Morbid (severe) obesity due to excess calories (ICD-10 - E66.01) 1. Diabetes: A1c stable at 6.0 Follow on presnet therapy 2. Aortic Stenosis : moderate by Echo Plan to recheck yearly 3. Hypertension: Stable on presnet therapy Follow on current meds 4. Obesity: Discussed increasing Ozempic to 10 mg next in the near future Follow 12/11/2024 Essential (primary) hypertension (ICD-10 - I10) 1. Diabetes: A1c was stable at 6.0. Will adjust Ozempic dosing for weight concern reasons below 2. Morbid obesity: We will trial increasing the Ozempic to 2 mg. Emphasized that he needs to work at diet and exercise as well and not expect the medication to substitute for days. If he is not improving we may consider switching to Mounjaro 3. Moderate aortic stenosis: Saw cardiology. Will continue to follow serial echocardiograms. No change in recommendations today 4. Hypertension: Well-controlled on present therapy. No changes made today 03/26/2025 Essential (primary) hypertension (ICD-10 - I10) 1. Type 2 diabetes mellitus: A1c is stable at 6.0. Will observe effect of increasing Ozempic in recent weeks. 2. Obesity: Weight is plateaued. Just recently started the 2 mg dose and we will need to see if he can tolerate it in the coming weeks and if not dropped down to the 1 mg dose. I have explained to him that he cannot have the medication operate in a vacuum. If he does nothing dietary de leon or exercise de leon to help the effect of the medicine will not be maximized 3. Aortic stenosis: Last echo was in June. We will plan to recheck in the fall 4. Hypertension: This is stable on present therapy. No changes made today 06/24/2025 Left hip pain (ICD-10 - M25.552) [...] No sx await follow up Echo in 09/15/2024 Other Patient requested this 6-minute virtual encounter using [employer] audio and video connections from my home to his after hours. PLAN OF TREATMENT Future Test Test Name Order Date HEMOGLOBIN A1C 09/01/2023 Next Appt Details Provider Name:SABINE LUO , 09/24/2025 01:15:00 PM, [address] [place], [address], Insurance Providers Payer Name Payer Address Payer Phone Subscriber Number Group Number Insured Name Patient Relationship to Insured Coverage Start Date Coverage End Date [facility] [address] [place] [address] [id number] JODY JACKSON Self - patient is the insured 3 MEDICAL (GENERAL) HISTORY Medical History History ICD Code Disease : obesity, Hypertension, Diabetes, Anxiety, Surgical History Surgery Date(Month/Year) should RIGHT bone spurs removed 09/14/24
--- OUTSIDE RECORDS SUMMARY | 2025-08-08 18:41 | XMS_ITS | Clinical Summary ---
Author Organization [facility] Address [address] [place] [address] Care Team Providers Care University Intern Name Role Phone Deandre Jones MD Primary [...] (1 of 2) 2010 Influenza Vaccine (#1) 2025 Abdominal Aortic Aneurysm (A AA) Screening 2025 Fall Risk Assessment 2025 Pneumococcal Vaccine (1 of 1 - [...] age to complete this topic Care Teams University Intern Relationship Specialty Start Date End Date Deandre Jones MD PCP - General Internal Medicine 11/26/22
== END 2025-08-08 13:03 | disposition home or self-care (01) ==
LOC: HO.HOSX 13:02
PROVIDERS: Visit Provider Orthopaedic Surgery
DX: S83.241A Other tear of medial meniscus, current injury, right knee, initial encounter (principal); X58.XXXA Exposure to other specified factors, initial encounter
CPT/HCPCS: 73562

== ENCOUNTER 2025-08-08 13:19 | Outpatient (AMB) | payer BC, SELFPAY ==
--- NOTE | 2025-08-08 13:37 | A.OFFVIS_ITS ---
Vital Signs 08/08/25 13:47 Height 5 ft 11 in Weight 289 lb BMI 40.3 Intake Visit Reasons: Right knee pain and giving way Intake Note: Yogesh 65 yr old male presents with complaints of progressively worsening right knee pain and giving way. The patient states that he did undergo right knee arthroscopic surgery several years ago. He got fairly good relief from that pr ocedure initially. The patient recently re-injured his right knee while going down the stairs. He felt a ?pop? in his right knee. Since that time he has had difficulty walking. He states that his right knee will give out several times per day. He has tried Tylenol and anti-inflammatory medicines which gave him minimal relief. He has tried physical therapy exercises which aggravated his pain. Most of the pain is along the medial aspect of his knee. Allergies No Known Allergies Allergy (Verified 08/08/25 13:46) Medication List - Last Reconciled 08/08/25 by Rachid Moody MD amlodipine 10 mg PO QNOON hydrochlorothiazide 12.5 mg PO DAILY lorazepam 0.5 mg PO DAILY PRN metformin 500 mg PO QPM paroxetine HCl 20 mg PO DAILY semaglutide (Ozempic) 0.25 mg subcut QWEEK testosterone 1 pump topical DAILY valsartan 160 mg PO DAILY PFSH Medical History (Updated 08/08/25 @ 14:00 by Rachid Moody MD) Pre-diabetes Anxiety Obesity Diabetes HTN (hypertension) Aortic stenosis Skin cancer COVID-19 Murmur Surgical History History of dental surgery H/O colonoscopy History of testicular surgery Hx of knee surgery Social History Are you a primary career information specialist to a significant other at home: No Do you presently have visiting nurse or other home services: No Patient Tobacco Use Status: Never used Tobacco Current occupational status: employed 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 Exam Vital Signs: BMI result Body Mass Index 40.3 Const Other: Well-nourished well-developed very friendly male awake alert and oriented x3 in no acute distress Extrem Other: Right knee examination shows a minimal effusion, minimal crepitus with range of motion, tenderness along his medial joint line, positive Angelica's test, no instability Results Reviewed Results Reviewed: Standing full weight-bearing x-rays of the patient's right knee show mild diffuse joint space narrowing, no acute bony abnormalities Assessment & Plan Assessment & Plan (1) Tear of medial meniscus of right knee: Code(s): S83.241A - Other tear of medial meniscus, current injury, right knee, initial encounter Category: Medical Plan Mr. Jackson presents with recurrent right knee pain and mechanical symptoms possibly due to a recurrent medial meniscus tear. Thus, I will send the patient for an MRI of his right knee for further evaluation. I will contact him by phone once the MRI results are available. Feel free to call me at any time should questions regarding his orthopedic management arise. I spent 21 minutes in reviewing the patient's records and imaging studies, seeing the patient and documenting in the medical record. Orders: Orders MR knee RT wo con 08/09/25 S83.241A - Other tear of medial meniscus, current injury, right knee, initial encounter XR knee RT 3V Today M25.561 - Pain in right knee Coding Level of Care Code Est Pt Level 3 (95525) Complex visit Add On G2211 Diagnoses Tear of medial meniscus of right knee S83.241A
[2025-08-08 13:47] VITALS: BMI 40.3
== END 2025-08-08 13:59 | disposition home or self-care (01) ==
LOC: HO.HOS 13:19
PROVIDERS: PCP Internal Medicine; Visit Provider Orthopaedic Surgery
DX: S83.241A Other tear of medial meniscus, current injury, right knee, initial encounter (principal)
CPT/HCPCS: 99213

== ENCOUNTER → 2025-08-08 13:21 | Outpatient (BNV) | payer BC, SELFPAY | PROVIDERS: Visit Provider Radiology Diagnostic Radiology | DX: M25.561 Pain in right knee (principal) | CPT/HCPCS: 73562 ==